=== PATIENT | female | born 1950 | race Caucasian/White ===

== ENCOUNTER → 2018-02-27 14:06 | Outpatient (CLI) | payer MEDICARE, OTHER, SELFPAY ==
[2018-02-27 15:26] LABS: Hematocrit 43.2 % (37-47); Mean Corp Hgb Conc 32.4 g/gl (32-36); Mean Corpuscular Hgb 28.2 pg (27.0-32.0); Mean Corpuscular Volume 86.9 fL (81-99); Mean Platelet Vol. 11.9 fl (6.2-12.0); Platelet Count 215 K/mm3 (150-450); RBC Distribution Width CV 15.6 % (11.6-14.6); Red Blood Count 4.97 M/mm3 (4.2-5.4); White Blood Count 7.8 K/mm3 (4.4-11.0)
[2018-02-27 15:41] LABS: Scan Indicated on CBC? Y/N NO
[2018-02-27 16:08] LABS: Vitamin B12 740 pg/mL (211-911)
[2018-02-27 16:39] LABS: AST(SGOT) 62 U/L (15-37); Alanine Aminotransfer ALT/SGPT 61 U/L (13-56); Albumin, Serum 4.1 g/dL (3.2-5.0); Alkaline Phosphatase 81 U/L (45-117); Anion Gap 12 (5-15); BUN 14 mg/dL (7-18); Calcium,Total 9.5 mg/dL (8.5-10.1); Chloride 106 mmol/L (98-107); Creatinine, Serum 0.88 mg/dL (0.55-1.02); EST Glomerular Filtration Rate 68 mL/min (>60); Est Glom Filt Rate - Afr Amer 82 mL/min (>60); Globulin 4.2 g/dL (2.2-4.2); Glucose 106 mg/dL (74-106); Potassium 4.3 mmol/L (3.5-5.1); Protein, Total 8.3 g/dL (6.4-8.2); Sodium Level 142 mmol/L (136-145)
== END ==
PROVIDERS: Family Provider Family Medicine; PCP Family Medicine; Visit Provider Psychiatry & Neurology Psychiatry
DX: R41.9 Unspecified symptoms and signs involving cognitive functions and awareness (principal)
CPT/HCPCS: 36415; 80053; 82607; 82746; 84443; 85027

== ENCOUNTER → 2018-03-02 15:20 | Outpatient (CLI) | payer MEDICARE, OTHER, SELFPAY | PROVIDERS: Family Provider Family Medicine; PCP Family Medicine; Visit Provider Psychiatry & Neurology Psychiatry | DX: R41.9 Unspecified symptoms and signs involving cognitive functions and awareness (principal) | CPT/HCPCS: 70553; A9585 ==

== ENCOUNTER → 2018-04-06 12:42 | Outpatient (CLI) | payer MEDICARE, OTHER, SELFPAY ==
--- NOTE | 2018-04-07 06:10 | PFTCOMP ---
COMPLETE PULMONARY FUNCTION TEST INTERPRETATION Brief HPI: Patient is a 68 year old female, currently under the care of Dr. Lynch, who presents to [facility] for complete pulmonary function tests secondary to diagnosis of dyspnea. Respiratory therapist reports good effort and reproducible results. Interpretation: Forced expiration spirometry shows no large airways obstructive ventilatory defect with an FEV1 of 91% predicted. There is no significant bronchodilator response by ATS criteria. Spirograms are of good quality and plateau normally. The respiratory flow volume loop shows a normal pattern. Lung volumes by body plethysmography show a normal total lung capacity at 4.12 L, 86% predicted. All other lung volumes are within normal limits. Diffusion capacity by carbon monoxide is at the lower limit of normal at 66% predicted. The airway resistance is slightly elevated. No previous pulmonary function tests were available for review. Impression: Grossly normal pulmonary function test, but lung volumes and DLCO are at the lower limit of normal. Cannot rule out early interstitial lung disease. Consider chest imaging if not completed previously.
== END ==
PROVIDERS: Family Provider Family Medicine; PCP Family Medicine; Referring Provider Family Medicine; Visit Provider Family Medicine
DX: R06.00 Dyspnea, unspecified (principal)
CPT/HCPCS: 94060; 94726; 94729

== ENCOUNTER → 2018-04-24 11:51 | Outpatient (CLI) | payer MEDICARE, OTHER, SELFPAY ==
--- NOTE | 2018-04-24 11:53 | BI_ITS ---
MAMMOGRAPHY - BILATERAL SCREENING REASON FOR EXAM: Female, 68 years old. Routine annual screening examination. PERTINENT HISTORY: Non-contributory. TECHNIQUE: Digital bilateral breast gregorio (3D mammographic acquisition) in the CC and MLO projections. 2-D mediolateral oblique (MLO) and craniocaudad (CC) views of both breasts were obtained. CAD: Full Field Digital Mammography with Computer Added Detection was performed. COMPARISON: Comparison is made with prior abdomen examination dated May 24, 2014. FINDINGS: Breast Composition: There are scattered areas of fibroglandular density. There are no dominant masses or suspicious calcifications. Scattered bilateral calcifications. No focal cluster is seen. Stable appearance of the small bilateral axillary lymph nodes. No other significant abnormalities are identified. There has been no significant change since the prior study. BI/SCREENING MAMM (CAD), BILAT IMPRESSION: Stable bilateral screening mammogram. Yearly follow-up mammogram recommended. (A) ASSESSMENT CATEGORY: BIRADS Category 2: Benign. A letter regarding these results will be sent to the patient by the facility within 30 days. Approximately 10% of breast cancers are not detected by mammography. A normal mammogram should not delay biopsy of a clinically suspicious abnormality. [id number] Electronically Signed: Carlitos Lentz MD at 8:18 EDT Tel [phone], Service support ,
== END ==
PROVIDERS: Family Provider Family Medicine; PCP Family Medicine; Referring Provider Family Medicine; Visit Provider Family Medicine
DX: Z12.31 Encounter for screening mammogram for malignant neoplasm of breast (principal)
CPT/HCPCS: 77063; 77067

== ENCOUNTER → 2020-12-23 12:36 | Outpatient (CLI) | payer MEDICARE, OTHER, SELFPAY ==
--- NOTE | 2020-12-23 12:39 | ECHOCS_ITS ---
Reason For Study: SOB, Palpitations Procedure This was a 2D Doppler, Color Flow transthoracic echocardiogram. Technically difficult due to patients body habitus. Contrast injection performed. Exam performed in department. Left Ventricle Normal LV size. Left ventricular systolic function is normal. The estimated ejection fraction is 65 %. Stage 1 diastolic dysfunction. No regional wall motion abnormalities noted. Right Ventricle Normal RV size. Normal systolic function. Atria Normal left atrium. Normal right atrium. Mitral Valve Normal mitral valve. Tricuspid Valve Normal tricuspid valve. Mild (1+) tricuspid valve insufficiency. Pulmonary artery systolic pressure is 38 mmHg. Aortic Valve The aortic valve is not well visualized. Pulmonic Valve The pulmonic valve is not well visualized. Great Vessels Normal aortic root. Pericardium/Pleural No pericardial effusion. Medication 22 gauge I.V. with prn adaptor inserted into left arm. Diluted definity 3ml given slow IV push to enhance endocardial definition. MMode/2D Measurements & Calculations LVIDd: 4.1 cm IVSd: 1.2 cm Ao root diam: 2.9 cm LVIDs: 2.6 cm LVPWd: 1.1 cm FS: 36.3 % LAV(MOD-bp): 55.1 ml LA A4 area: 18.5 cm2 RA A4 area: 11.1 cm2 LAV(MOD-bp) Indexed: 26.8 ml/m2 LAV(MOD-sp2): 56.2 ml LAV(MOD-sp4): 49.3 ml Time Measurements MV dec time: 0.28 sec Doppler Measurements & Calculations MV E max jasvir: 56.6 cm/sec Lat Peak E' Jasvir: 9.9 cm/sec Med Peak E' Jasvir: 7.0 cm/sec MV A max jasvir: 78.2 cm/sec E/E' lat: 5.7 E/E' med: 8.1 MV E/A: 0.72 MV V2 max: 85.4 cm/sec MV P1/2t max jasvir: 63.8 cm/sec Ao V2 max: 133.3 cm/sec MV max P.9 mmHg MV P1/2t: 77.3 msec Ao max P.1 mmHg MV V2 mean: 47.4 cm/sec MV dec slope: 241.9 cm/sec2 MV mean P.1 mmHg MV V2 VTI: 16.5 cm MVA(P1/2t): 2.8 cm2 LV V1 max: 97.7 cm/sec PA V2 max: 93.8 cm/sec TR max jasvir: 287.4 cm/sec LV V1 max P.8 mmHg TR max P.0 mmHg ECHO/Echo Complete W/ Contrast Interpretation Summary Normal LV size. Left ventricular systolic function is normal. The estimated ejection fraction is 65 %. Pulmonary artery systolic pressure is 38 mmHg. Stage 1 diastolic dysfunction. Contrast injection was performed. Ordering Physician: Oscar Ramirez Referring Physician: Oscar Ramirez Performed By: Javier Dailey RCS
== END ==
PROVIDERS: PCP Nurse Practitioner Family; Referring Provider Nurse Practitioner Family; Visit Provider Nurse Practitioner Family
DX: R00.2 Palpitations (principal); R06.02 Shortness of breath
CPT/HCPCS: 93306; Q9957; A4216; C8929; J3490

== ENCOUNTER → 2021-01-08 12:30 | Outpatient (CLI) | payer MEDICARE, OTHER, SELFPAY ==
--- NOTE | 2021-01-09 10:08 | PFT ---
INTRODUCTION: The patient is a 70-year-old female that presents for pulmonary function studies secondary to a diagnosis of shortness of breath. Respiratory therapy reports good patient effort. Bronchodilators were used during testing. INTERPRETATION: Forced expiration spirometry demonstrates no evidence of a large airways obstructive ventilatory defect. There was no significant response to aerosolized bronchodilators. Spirograms are of good quality and plateau normally. Body plethysmography was performed and reveals a decreased TLC to 3.85 L, 77% of predicted, indicative of a mild restrictive ventilatory impairment. Diffusing capacity by single breath CO is reduced to 54% of predicted. IMPRESSION: Mild restrictive ventilatory impairment with disproportionate reduction in diffusing capacity.
== END ==
PROVIDERS: PCP Nurse Practitioner Family; Referring Provider Nurse Practitioner Family; Visit Provider Nurse Practitioner Family
DX: R06.02 Shortness of breath (principal)
CPT/HCPCS: 94060; 94726; 94729

== ENCOUNTER → 2021-02-27 14:52 | Outpatient (CLI) | payer MEDICARE, OTHER, SELFPAY ==
--- NOTE | 2021-02-27 15:05 | RAD_ITS ---
STUDY: X-RAY CHEST REASON FOR EXAM: Female, 71 years old. DYSPNEA TECHNIQUE: PA and lateral views of the chest. COMPARISON: None. FINDINGS: The lungs are clear and expanded. Elevated right hemidiaphragm. Normal size heart. Normal mediastinum and payam. Normal visualized pulmonary arteries. Normal visualized aortic arch and descending thoracic aorta. Normal visualized thoracic spine. Normal visualized ribs, clavicles, and shoulders. There is no demonstrated abnormality of the visualized soft tissue structures of the upper abdomen. RAD/Chest PA and Lateral IMPRESSION: No active disease. Elevated right hemidiaphragm. Electronically Signed: Oscar Chong MD at 7:39 EDT Tel , Service support ,
== END ==
PROVIDERS: PCP Nurse Practitioner Family; Referring Provider Anesthesiology Pain Medicine; Visit Provider Anesthesiology Pain Medicine
DX: R06.00 Dyspnea, unspecified (principal)
CPT/HCPCS: 71046

== ENCOUNTER → 2021-03-03 14:58 | Outpatient (CLI) | payer MEDICARE, OTHER, SELFPAY ==
--- NOTE | 2021-03-03 15:02 | BI_ITS ---
MAMMOGRAPHY - BILATERAL SCREENING REASON FOR EXAM: Female, 71 years old. Routine annual screening examination. PERTINENT HISTORY: Non-contributory. TECHNIQUE: Digital bilateral breast sathish (3D mammographic acquisition) in the CC and MLO projections. 2-D mediolateral oblique (MLO) and craniocaudad (CC) views of both breasts were obtained. CAD: Full Field Digital Mammography with Computer Added Detection was performed. COMPARISON: Comparison is made with prior examination 04/24/2018. FINDINGS: Breast Composition: There are scattered areas of fibroglandular density. There are no dominant masses or suspicious calcifications. Scattered bilateral calcifications most likely secretory in nature. These have progressed as compared to prior study. No focal cluster is seen. Stable benign-appearing bilateral axillary lymph nodes. No other significant abnormalities are identified. There has been no significant change since the prior study. BI/SCRN MAMM (CAD)W/SATHISH BILAT IMPRESSION: Stable bilateral screening mammogram. Yearly follow-up mammogram recommended. (A) ASSESSMENT CATEGORY: BIRADS Category 2: Benign. A letter regarding these results will be sent to the patient by the facility within 30 days. Approximately 10% of breast cancers are not detected by mammography. A normal mammogram should not delay biopsy of a clinically suspicious abnormality. [id number] Electronically Signed: Carlitos Lentz MD at 8:30 EDT , Service support ,
--- NOTE | 2021-03-03 15:08 | BD_ITS ---
STUDY: DUAL ENERGY X-RAY ABSORPTIOMETRY / DXA REASON FOR EXAM: Female, 71 years old. Z780. Patient is postmenopausal. TECHNIQUE: Bone Mineral Density (BMD) measurements of lumbar spine and bilateral hips were obtained. COMPARISON: None. FINDINGS: Lumbar Spine (L1-L4): g/cm2 (1.106) / T-score (0.8) / Z-score (3.1) Findings are suggestive of normal bone density with a low fracture risk. Left Femur Total: g/cm2 (1.027) / T-score (0.7) / Z-score (2.4) Left Femoral Neck: g/cm2 (0.864) / T-score (0.1) / Z-score (2.1) Right Femur Total: g/cm2 (1.00.) / T-score (0.5) / Z-score (2.2) Right Femoral Neck: g/cm2 (0.867) / T-score (0.2) / Z-score (2.1) BD/Dexa Bone Density Study IMPRESSION: The patient is considered normal as outlined below according to World [employer] Organization (WHO) criteria with a low fracture risk. Reference Information: The T-score is the number of standard deviations above or below the standard which is normal for young adults at their peak bone mineral density. The World Health Organization (WHO) interprets the T-scores as follows: Above -1 Normal bone density Between -1 and -2.5 Osteopenia Equal to / or below -2.5 Osteoporosis As a practical clinical guideline, osteopenia may be graded as follows: Mild -1 through -1.5 Moderate -1.6 through -2.0 Severe -2.1 through -2.4 The Z-score is the number of standard deviations above or below age-matched controls. A Z-score of less than -1.5 would be considered abnormal. References: 1. NIH Osteoporosis and Related Bone Diseases www osteo.org 2. International Society for Clinical Densitometry www iscd.org 3. National Osteoporosis Foundation www nof.org Electronically Signed: Carlitos Lentz MD at 15:31 EDT , Service support ,
== END ==
PROVIDERS: PCP Nurse Practitioner Family; Referring Provider Nurse Practitioner Family; Visit Provider Nurse Practitioner Family
DX: Z12.31 Encounter for screening mammogram for malignant neoplasm of breast (principal); Z13.820 Encounter for screening for osteoporosis; Z78.0 Asymptomatic menopausal state
CPT/HCPCS: 77063; 77067; 77080

== ENCOUNTER → 2021-03-04 08:39 | Outpatient (CLI) | payer MEDICARE, OTHER, SELFPAY ==
--- NOTE | 2021-03-04 08:41 | RAD_ITS ---
PROCEDURE: Sniff test. DATE OF EXAMINATION: 03/04/2021. INDICATION: Female, 71 years old. Dyspnea. PHYSICIAN: Dr. MIKE Naik FLUOROSCOPY TIME (if supplied): (23 seconds) minutes/seconds. 3 images were obtained. There is elevation of the right hemidiaphragm. There is free movement of both hemidiaphragms. RAD/Chest Sniff Test Fluoro Only IMPRESSION: Elevation of the right hemidiaphragm. Free movement of both hemidiaphragms. Electronically Signed: Carlitos Lentz MD at 10:13 EDT , Service support ,
== END ==
PROVIDERS: PCP Nurse Practitioner Family; Referring Provider Internal Medicine Pulmonary Disease; Visit Provider Internal Medicine Pulmonary Disease
DX: R06.00 Dyspnea, unspecified (principal)
CPT/HCPCS: 76000

== ENCOUNTER 2021-04-02 13:54 | Outpatient (RCR) | payer MEDICARE, OTHER, SELFPAY | END 2021-04-09 23:59 | LOC: DC 13:54 | PROVIDERS: PCP Nurse Practitioner Family; Visit Provider Internal Medicine Pulmonary Disease | DX: E11.9 Type 2 diabetes mellitus without complications (principal); E66.9 Obesity, unspecified; I27.20 Pulmonary hypertension, unspecified; J98.6 Disorders of diaphragm; R06.00 Dyspnea, unspecified | CPT/HCPCS: 97802 ==

== ENCOUNTER 2021-04-21 14:42 | Outpatient (RCR) | payer MEDICARE, OTHER, SELFPAY | END 2021-05-10 23:59 | LOC: DC 14:42 | PROVIDERS: PCP Nurse Practitioner Family; Visit Provider Internal Medicine Pulmonary Disease | DX: E11.9 Type 2 diabetes mellitus without complications (principal); I27.20 Pulmonary hypertension, unspecified; R06.00 Dyspnea, unspecified; J98.6 Disorders of diaphragm | CPT/HCPCS: 97803 ==

== ENCOUNTER 2021-05-12 14:06 | Outpatient (RCR) | payer MEDICARE, OTHER, SELFPAY | END 2021-05-12 23:59 | disposition home or self-care (01) | LOC: DC 14:06 | PROVIDERS: PCP Nurse Practitioner Family; Visit Provider Internal Medicine Pulmonary Disease | DX: E11.9 Type 2 diabetes mellitus without complications (principal); E66.9 Obesity, unspecified; I27.20 Pulmonary hypertension, unspecified; J98.6 Disorders of diaphragm | CPT/HCPCS: 97803 ==

== ENCOUNTER → 2021-06-15 12:37 | Outpatient (CLI) | payer MEDICARE, OTHER, SELFPAY ==
--- NOTE | 2021-06-15 12:43 | CT_ITS ---
STUDY: CT CHEST WITHOUT CONTRAST REASON FOR EXAM: Female, 71 years old. Several month history of shortness of breath. RADIATION DOSAGE (If Supplied By Facility): CTDIvol = ( 16.95 ) mGy, DLP = ( 568.44 ) mGycm TECHNIQUE: Transaxial imaging was performed without the administration of intravenous contrast material. Multiplanar coronal and sagittal images were reformatted. Individualized dose optimization techniques were used for this CT. COMPARISON: None. FINDINGS: Small benign-appearing bilateral axillary lymph nodes slightly more prominent on the left side. Increased linear markings seen in the posterior medial segments of both lower lobes suggestive of scarring. Minimal scarring is also seen in the posterior aspect of the lingular segment of the left upper lobe. There is a 7.9 mm noncalcified nodule adjacent to the linear scarring as it abuts the left major fissure. A four-month follow-up examination is recommended. There is no demonstrated pleural abnormality. There are calcifications of the coronary arteries. There are multiple small lymph nodes within the mediastinum, which are normal in size and morphology most compatible with reactive lymph hyperplasia. Normal hilar regions. Normal unenhanced pulmonary arteries. There is atherosclerotic calcification of the aortic arch with tortuosity and elongation of the aortic arch and descending thoracic aorta. There are multi-level degenerative changes of the thoracic spine. There is no demonstrated abnormality of the visualized upper abdomen. CT/Chest without Contrast IMPRESSION: Scarring at both lung bases with focal scarring and nodular appearance in the lateral aspect of the lingular segment of the left upper lobe at that abuts the left major fissure. A 4 month follow-up examination is recommended. Electronically Signed: Carlitos Lentz MD at 15:03 EST , Service support ,
== END ==
PROVIDERS: PCP Nurse Practitioner Family; Visit Provider Internal Medicine Pulmonary Disease
DX: R06.00 Dyspnea, unspecified (principal)
CPT/HCPCS: 71250

== ENCOUNTER → 2021-12-28 | Outpatient (CLI) | payer MEDICARE, OTHER, SELFPAY ==
--- NOTE | 2021-12-28 13:46 | CT_ITS ---
STUDY: CT Chest W/O Contrast Injection 12/28/2021 3:09 PM REASON FOR EXAM: Female, 71 years old. SOLITARY PULMONARY NODULE Individualized dose optimization techniques were used for this CT. TECHNIQUE: Transaxial imaging was performed withoutIV contrast material. COMPARISON: Jun 15 2021 1:06pm FINDINGS: There are degenerative changes of the shoulders. There is no pneumothorax. There is no demonstrated pleural abnormality. There is a 7.6 mm right superior segment of the lower lobe nodule. SE: 4 IM: 45. Stable area of scarring in the lingula measuring 7.2mm. There are calcifications of the coronary arteries. Normal mediastinum. Normal hilar regions. Normal pulmonary arteries. There is atherosclerotic calcification of the aortic arch with tortuosity and elongation of the aortic arch and descending thoracic aorta. There are multi-level degenerative changes of the thoracic spine. There are multiple gallstones. CT/Chest without Contrast IMPRESSION: There is a right lower lobe nodule that measured 7.2 mm on the prior study. It is larger today. ACR Lung CT Screening Reporting T Data System (Lung-RADS) score: 4A - Suspicious. Recommend low-dose CT (LDCT) in 3 months or PET/CT for solid components 8 mm or larger in size. The left area is likely related to scarring. ACR Lung CT Screening Reporting T Data System (Lung-RADS) score: 2 - Benign Appearance or Behavior. Recommend continued annual screening with low-dose CT (LDCT) in 12 months. There are multiple gallstones. Electronically Signed: Forest Reeder MD at 15:16 EDT ,
== END | disposition home or self-care (01) ==
LOC: CT 13:41
PROVIDERS: PCP Nurse Practitioner Family; Referring Provider Internal Medicine Pulmonary Disease; Visit Provider Internal Medicine Pulmonary Disease
DX: R91.1 Solitary pulmonary nodule (principal)
CPT/HCPCS: 71250

== ENCOUNTER → 2022-11-29 | Outpatient (CLI) | payer MEDICARE, OTHER, SELFPAY ==
--- NOTE | 2022-11-29 16:00 | CT_ITS ---
INDICATION: PULM NODULE EXAMINATION: CT CHEST WITH CONTRAST - CT Chest W/ Contrast Injection TECHNIQUE: Helically acquired images were obtained of the chest following IV contrast. A radiation dose optimization technique was used for this scan. IV Contrast dosage and agent: 100 mL [id number] COMPARISON: 06/15/2021, 12/28/2021 FINDINGS: LUNGS, PLEURA AND LARGE AIRWAYS: 0.6 x 0.6 x 0.5 cm medial superior segment right lower lobe nodule, unchanged compared to 12/28/2021. Posterior right lower lobe bronchial mucous plugging. No mass, consolidation, or edema. No pleural effusion or thickening. No pneumothorax. THYROID: No thyroid lesions. HEART AND PERICARDIUM: Heart size is normal. No pericardial effusion. VESSELS: Thoracic aorta is not dilated. No aortic dissection. No obvious central pulmonary embolism although this study was not performed with the pulmonary embolism protocol. MEDIASTINUM AND HATTIE: No mediastinal or hilar adenopathy. Esophagus is unremarkable. No hiatal hernia. UPPER ABDOMEN: Cholelithiasis redemonstrated. BONES: No suspicious lytic or blastic abnormality. CT/Chest WITH Contrast IMPRESSION: Superior segment right lower lobe nodule is unchanged compared to 06/15/2021 and 12/28/2021. Posterior right lower lobe bronchial mucous plugging. Electronically Signed: Dong Guo MD at 20:32 EDT ,
[2022-11-29 16:16] LABS: CREATININE FINGERSTICK < 0.9 mg/dL (0.55-1.02); EGFR FINGERSTICK > 60.0000 mL/min (>60)
== END | disposition home or self-care (01) ==
LOC: CT 15:36
PROVIDERS: PCP Nurse Practitioner Family; Referring Provider Internal Medicine Pulmonary Disease; Visit Provider Internal Medicine Pulmonary Disease
DX: R91.1 Solitary pulmonary nodule (principal)
CPT/HCPCS: 71260; Q9967

== ENCOUNTER → 2023-01-05 | Outpatient (CLI) | payer MEDICARE, OTHER, SELFPAY ==
--- NOTE | 2023-01-05 13:49 | ECHOD_ITS ---
Reason For Study: SOB/PAH Procedure This was a 2D Doppler, Color Flow transthoracic echocardiogram. Exam performed in department. Left Ventricle Normal LV size. Left ventricular systolic function is normal. The estimated ejection fraction is 60 %. Stage 1 diastolic dysfunction. No regional wall motion abnormalities noted. Right Ventricle Normal RV size. Normal systolic function. Atria Normal left atrium. Normal right atrium. Mitral Valve Normal mitral valve. Tricuspid Valve Normal tricuspid valve. Mild (1+) tricuspid valve insufficiency. Pulmonary artery systolic pressure is 28 mmHg. Aortic Valve Trisinus/trileaflet aortic valve. Mild focal aortic valve calcification. Pulmonic Valve Normal pulmonic valve. Great Vessels Normal aortic root. Pericardium/Pleural No pericardial effusion. MMode/2D Measurements & Calculations LVIDd: 3.8 cm IVSd: 1.0 cm Ao root diam: 2.9 cm LVIDs: 2.9 cm LVPWd: 1.0 cm FS: 23.1 % LAV(MOD-bp): 39.4 ml LVAd ap4: 19.5 cm2 SV(MOD-sp4): 24.6 ml LAV(MOD-bp) Indexed: 20.0 ml/m2 LVLd ap4: 7.2 cm LAV(MOD-sp2): 45.8 ml EDV(MOD-sp4): 44.9 ml LAV(MOD-sp4): 31.8 ml EDV(sp4-el): 45.1 ml LVAs ap4: 12.1 cm2 LVLs ap4: 6.6 cm ESV(MOD-sp4): 20.3 ml ESV(sp4-el): 18.7 ml EF(MOD-sp4): 54.7 % EF(sp4-el): 58.5 % SV(sp4-el): 26.4 ml LA A4 area: 13.9 cm2 LA dimension(2D): 3.7 cm RA A4 area: 9.0 cm2 TAPSE: 1.3 cm Time Measurements MV dec time: 0.29 sec Doppler Measurements & Calculations MV E max jasvir: 42.7 cm/sec Lat Peak E' Jasvir: 10.7 cm/sec Med Peak E' Jasvir: 5.3 cm/sec MV A max jasvir: 53.3 cm/sec E/E' lat: 4.0 E/E' med: 8.1 MV E/A: 0.80 MV V2 max: 64.3 cm/sec Ao V2 max: 132.7 cm/sec MV max P.7 mmHg MV dec slope: 145.4 cm/sec2 Ao max P.0 mmHg MV V2 mean: 39.5 cm/sec Ao V2 mean: 94.1 cm/sec MV mean P.72 mmHg Ao mean P.1 mmHg MV V2 VTI: 20.0 cm Ao V2 VTI: 27.6 cm AV (velocity ratio): 0.75 LV V1 max: 94.6 cm/sec PA V2 max: 110.6 cm/sec TR max jasvir: 249.4 cm/sec LV V1 max P.6 mmHg PA V2 mean: 69.1 cm/sec TR max P.9 mmHg LV V1 mean P.9 mmHg LV V1 mean: 63.4 cm/sec LV V1 VTI: 20.6 cm ECHO/Echo Complete Interpretation Summary Normal LV size. Left ventricular systolic function is normal. The estimated ejection fraction is 60 %. Stage 1 diastolic dysfunction. Ordering Physician: Anival Kim V Referring Physician: Anival Kim V Performed By: Laurence Riggs RCS
== END | disposition home or self-care (01) ==
LOC: CVS 13:47
PROVIDERS: PCP Nurse Practitioner Family; Referring Provider Internal Medicine Pulmonary Disease; Visit Provider Internal Medicine Pulmonary Disease
DX: R06.02 Shortness of breath (principal); I27.20 Pulmonary hypertension, unspecified
CPT/HCPCS: 93306

== ENCOUNTER → 2024-02-08 | Outpatient (CLI) | payer MEDICARE, OTHER, SELFPAY ==
--- NOTE | 2024-02-08 15:48 | RAD_ITS ---
STUDY: X-RAY - CERVICAL SPINE REASON FOR EXAM: Female, 74 years old. NECK PAIN TECHNIQUE: 3 view(s) of the cervical spine were obtained. COMPARISON: None FINDINGS: No definite acute or significant abnormality seen. No fracture or dislocation. Normal curvature. Moderate multi-level degenerative changes, especially at C5-C6. RAD/Cerv Spine 2 or 3 Views IMPRESSION: Degenerative changes, no acute abnormality. Electronically Signed: Toño Garcia MD at 21:11 EDT ,
--- NOTE | 2024-02-08 15:50 | RAD_ITS ---
INDICATION: PAIN EXAMINATION/TECHNIQUE: X-RAY - LEFT XR Shoulder Min 2 Views 4 VIEWS COMPARISON: No relevant prior comparison study available FINDINGS: SOFT TISSUES: No soft tissue swelling or gas. No radiopaque foreign body. BONES/JOINTS: Moderate degenerative arthrosis of the AC joint and glenohumeral joint. No sclerotic or destructive changes observed. RAD/Shoulder min 2 Views IMPRESSION: Moderate degenerative arthrosis of the AC joint and glenohumeral joint. Electronically Signed: Alice Penaloza MD at 23:49 EDT ,
== END | disposition home or self-care (01) ==
PROVIDERS: PCP Nurse Practitioner Family; Referring Provider Nurse Practitioner Family; Visit Provider Nurse Practitioner Family
DX: M25.512 Pain in left shoulder (principal); S13.4XXA Sprain of ligaments of cervical spine, initial encounter; V89.2XXA Person injured in unspecified motor-vehicle accident, traffic, initial encounter; K21.9 Gastro-esophageal reflux disease without esophagitis
CPT/HCPCS: 72040; 73030

== ENCOUNTER → 2024-12-05 | Outpatient (CLI) | payer MEDICARE, OTHER, SELFPAY ==
--- NOTE | 2024-12-05 13:45 | RAD_ITS ---
PROCEDURE: HIP, UNI W/ PELVIS 2-3 VIEWS 12/05/2024 REASON FOR EXAM: PAIN OF RIGHT HIP JOINT TECHNIQUE: AP pelvis and two views right hip, 3 total images COMPARISON: None available FINDINGS: Symmetric appearing SI joints and pubic symphysis appear within limits. Lower lumbar spondylosis/discogenic change. The hip joints appear within limits. No fracture or dislocation. Right of midline pelvic calcification may be related to uterine fibroid, nonspecific. RAD/HIP, UNI W/ Pelvis 2-3 Views IMPRESSION: Right hip appears within limits as above. Reading Location: [id number]
[2024-12-05 14:59] LABS: Hematocrit 40.9 % (37-47); Mean Corp Hgb Conc 31.8 g/dL (32-36); Mean Corpuscular Hgb 28.5 pg (27.0-32.0); Mean Corpuscular Volume 89.7 fL (81-99); Mean Platelet Vol. 11.6 fl (6.2-12.0); Platelet Count 221 K/mm3 (150-450); RBC Distribution Width CV 14.6 % (11.6-14.6); RBC Distribution Width SD 47.8 fl (35.1-43.9); Red Blood Count 4.56 M/mm3 (4.2-5.4); White Blood Count 7.8 K/mm3 (4.4-11.0)
[2024-12-05 16:36] LABS: ALB/GLOB Ratio 1.2 RATIO (0.9-2.4); AST(SGOT) 28 U/L (<=31); Alanine Aminotransfer ALT/SGPT 23 U/L (<=34); Alkaline Phosphatase 69 U/L (35-104); Anion Gap 12 (5-15); BUN 11 mg/dL (4-19); BUN/Creat Ratio 15.5 RATIO (10-20); Calcium,Total 9.5 mg/dL (7.6-11.0); Carbon Dioxide 25.1 mmol/L (21.0-32.0); Chloride 100 mmol/L (98-108); Creatinine, Serum 0.72 mg/dL (0.70-1.20); EST Glomerular Filtration Rate 87 (>60); Globulin 3.2 g/dL (2.2-4.2); Glucose 217 mg/dL (70-99); Potassium 4.3 mmol/L (3.3-5.1); Protein, Total 7.3 g/dL (5.9-8.4); Sodium Level 137 mmol/L (133-145); Total Bilirubin 0.33 mg/dL (0.00-1.30)
== END | disposition home or self-care (01) ==
LOC: LAB 13:18
PROVIDERS: PCP Nurse Practitioner Family; Referring Provider Nurse Practitioner Family; Visit Provider Nurse Practitioner Family
DX: M25.551 Pain in right hip (principal); R53.82 Chronic fatigue, unspecified
CPT/HCPCS: 36415; 73502; 80053; 83735; 84439; 84443; 85027

== ENCOUNTER → 2025-01-02 | Outpatient (CLI) | payer MEDICARE, OTHER, SELFPAY ==
--- NOTE | 2025-01-02 09:36 | RAD_ITS ---
PROCEDURE: UPPER GI SINGLE CONTRAST 01/02/2025 REASON FOR EXAM: GERD TECHNIQUE: Double-contrast upper GI series. COMPARISON: None. FINDINGS: Incidental note is made of degenerative changes of the visualized spine. No area of esophageal narrowing or mucosal abnormality. No mass is seen. During the time of imaging, gastroesophageal reflux was not elicited. The stomach and duodenum demonstrate no abnormality. RAD/Upper GI Single Contrast IMPRESSION: Negative double-contrast upper GI series. Reading Location: [place] [id number]
== END | disposition home or self-care (01) ==
LOC: RAD 09:34
PROVIDERS: PCP Nurse Practitioner Family; Referring Provider Nurse Practitioner Family; Visit Provider Nurse Practitioner Family
DX: R13.10 Dysphagia, unspecified (principal); K21.9 Gastro-esophageal reflux disease without esophagitis
CPT/HCPCS: 74240

== ENCOUNTER → 2025-04-23 | Outpatient (CLI) | payer MEDICARE, OTHER, SELFPAY ==
--- NOTE | 2025-04-23 16:45 | CT_ITS ---
PROCEDURE: CHEST WITHOUT CONTRAST 04/23/2025 REASON FOR EXAM: SOLITARY PULM NODULE TECHNIQUE: Chest CT without contrast. Coronal and Sagittal reconstruction series were provided. One or more dose reduction techniques were used (e.g., Automated exposure control, adjustment of the mA and/or kV according to patient size, use of iterative reconstruction technique RADIATION DOSE SUMMARY: CTDlvol: 17.52 mGy DLP: 683.03 mGycm COMPARISON: CT chest without contrast, 12/28/2021. CT chest with contrast, 11/29/2022. FINDINGS: Lower neck:The thyroid gland is normal. There is no supraclavicular lymphadenopathy. Mediastinum:There are multiple stable reactive mediastinal lymph nodes. Heart and thoracic aorta:The heart size is normal. There is no pericardial effusion. There is moderate calcific vascular disease of the coronary arteries and thoracic aorta. Esophagus:Normal. Upper Abdomen:There is significant calcific vascular disease of the visualized abdominal aorta. The origins of both renal arteries are heavily calcified. There is cholelithiasis. There has been cholelithiasis for several years however the appearance of the gallbladder is consistent with chronic cholecystitis. There is a stable interpolar cortical cyst in the left kidney. Chest wall:The visualized soft tissues of the chest wall appear unremarkable. There is no axillary lymphadenopathy. There is [id number] multilevel degenerative disc disease of the thoracic and upper lumbar spine. Lungs, airways and pleura: There is stable minimal pleural-parenchymal scarring in both lung apices. There is a stable peripheral soft tissue density nodule in the lower lobe of the right lung measuring 8 x 8 mm (was 8 x 7 mm). There are stable subpleural bands in the posterior basilar segment of both lower lobes. There is stable scarring in the lingula. There are no new pulmonary nodules. There are no pleural effusions. CT/Chest without Contrast IMPRESSION: 1. Stable soft tissue density nodule in the lower lobe of the right lung. 2. There are no new pulmonary nodules. 3. There is calcific vascular disease. 4. Cholelithiasis with chronic cholecystitis. 5. Other findings as noted. Reading Location: [place] [id number]
== END | disposition home or self-care (01) ==
LOC: CT 16:44
PROVIDERS: PCP Nurse Practitioner Family; Referring Provider Internal Medicine Pulmonary Disease; Visit Provider Internal Medicine Pulmonary Disease
DX: R91.1 Solitary pulmonary nodule (principal)
CPT/HCPCS: 71250

== ENCOUNTER → 2025-05-30 | Outpatient (CLI) | payer MEDICARE, OTHER, SELFPAY ==
--- NOTE | 2025-05-30 14:49 | MRI_ITS ---
PROCEDURE: SPINE LUMBAR (ROUTINE) 05/30/2025 REASON FOR EXAM: STENOSIS, PAIN, NUMBNESS/TINGLING IN LEGS TECHNIQUE: Procedure Code: MRISPL Modality: MR Procedure: SPINE LUMBAR (ROUTINE) COMPARISON: X-ray lumbar spine . FINDINGS: Vertebrae: Preserved in height. Modic changes type 1 and type 2 at L4-L5. Alignment: Anterolisthesis L4 on L5 by 2 mm. Conus Medullaris: Unremarkable. L1-2: Disc bulge. Disc desiccation. Facet joint arthropathy with fluid effusion. Severe bilateral foramina stenosis. Moderate canal stenosis. L2-3: Disc desiccation. Disc bulge. Facet joint arthropathy. Moderate bilateral foramina stenosis. Mild canal stenosis. L3-4: Uncovered disc bulge. Facet joint arthropathy with fluid effusion. Severe canal stenosis. Mild bilateral foramina stenosis. L4-5: Disc desiccation. Facet joint arthropathy. Moderate bilateral foramina stenosis. No significant canal stenosis. L5-S1: Disc desiccation. Facet joints arthropathy. Sacrum: Unremarkable. MRI/Spine Lumbar (Routine) IMPRESSION: Multilevel degenerate changes predominantly at L3-L4 where there is severe francine l stenosis. Severe bilateral foramina stenosis and moderate canal stenosis at L1-L2. Moderate bilateral foramina stenosis at L2-L3. Moderate bilateral foramina stenosis at L4-L5. Reading Location: [facility]
--- NOTE | 2025-05-30 15:00 | BD_ITS ---
PROCEDURE: DEXA BONE DENSITY STUDY 05/30/2025 REASON FOR EXAM: PAIN F, age 75 y/o . Postmenopausal. TECHNIQUE: Procedure Code: BDDBD Modality: DX Procedure: DEXA BONE DENSITY STUDY COMPARISON: None FINDINGS: BMD and T-SCORES Lumbar spine: 1.120 g/cm2, T-score 0.6 Levels: L1 through L4 Left femoral neck: 0.816 g/cm2, T-score -0.3 Femoral neck comparison data not recommended for monitoring change. Left total hip: 0.813 g/cm2, T-score -0.4 Right femoral neck: 0.960 g/cm2, T-score 0.1 Femoral neck comparison data not recommended for monitoring change. The World Health Organization has defined the following categories based on bone density: Normal bone density: T-score equal to or greater than -1.0 Osteopenia: T-score between -1.0 and -2.5 Osteoporosis: T-score equal to or less than -2.5 FRAX (or Comparable) Fracture Risk Assessment: 10 Year Probability of Fracture: Major Osteoporotic Fracture: 8.3% Hip Fracture: 1.0% (Note: FRAX is not to be reported in setting of normal range bone density, osteoporosis on DEXA, known history of osteoporosis, prior osteoporotic hip or vertebral fracture, or for any patient undergoing pharmacological treatment for bone loss.) The National Osteoporosis Foundation (NOF) recommends pharmacological treatment for patients with a FRAX 10-year risk of 3% or higher for a hip fracture, or 20% or higher for a major osteoporotic fracture, to prevent osteoporosis and reduce fracture risk. The patient does not meet the pharmacological treatment recommendations for prevention of osteoporosis. BD/Dexa Bone Density Study IMPRESSION: NORMAL T-SCORES. Recommend follow-up as clinically warranted. Reading Location: [facility]
== END | disposition home or self-care (01) ==
LOC: OPBD 14:13
PROVIDERS: PCP Nurse Practitioner Family; Referring Provider Student in an Organized Health Care Education/Training Program; Visit Provider Student in an Organized Health Care Education/Training Program
DX: M81.0 Age-related osteoporosis without current pathological fracture (principal); M48.062 Spinal stenosis, lumbar region with neurogenic claudication; M43.16 Spondylolisthesis, lumbar region; M51.362 Other intervertebral disc degeneration, lumbar region with discogenic back pain and lower extremity pain
CPT/HCPCS: 72148; 77080